=== PATIENT | female | born 1955 | race Caucasian/White ===

== ENCOUNTER → 2017-09-22 | Day surgery (SDC) | payer OTHER ==
[~2017-09-22] VITALS: Ht 154.9 cm; Wt 104.3 kg
[~2017-09-22] MED LIST: ATORVASTATIN CA10 M1 PO; CITALOPRAM HBR10 MG PO; OMEPRAZOLE40 M1 PO; PRINIVIL10 M1 PO; REGLAN10 M1 PO; VITAMIN B-121000 MC3 PO; ZOFRAN ODT4 M1 SL
--- NOTE | 2017-09-22 17:22 | Operative Report ---
Operative/Inv Procedure Report Surgery Date: 09/22/17 Name of Procedure: Robotic cholecystectomy Pre-Operative Diagnosis: Biliary dyskinesia, morbid obesity (BMI 43) Post-Operative Diagnosis: Same Estimated Blood Loss: scant Surgeon/Fire Systems Inspector: Stephany SCHULTZ,Chuy Powell PAC Anesthesia: general endotracheal tube (ASA III), block, local half percent Marcaine plain IV Fluids: 1 L crystalloid Implants: None Drains: None Specimens: Gallbladder Complications: None Condition: Excellent, stable to PACU Operative Indication: Arelis is a 62-year-old female with recurring epigastric and right upper quadrant abdominal pain suggestive of biliary colic. Her ultrasounds and other imaging however have never shown stones. She had a quantitative HIDA scan showing ejection fraction of 23%. She presents for elective robotic cholecystectomy. She has morbid obesity with BMI 43. Operative/Procedure Note Note: The patient is taken to the operating room placed on the operating table supine position. Following an awake timeout she underwent uneventful induction of general endotracheal anesthesia had Venodyne boots in place arms extended out to the sides in the lower body Aranza hugger. She received Ancef IV prior skin incision as well as 2 mL of ICG for firefly visualization of the biliary tree. The abdomen was then prepped widely with DuraPrep and draped in usual sterile fashion. Local anesthetic was then infiltrated in the supraumbilical area where a curvilinear incision was made and carried down through a thick pannus of about 8 cm to the midline fascia. This was thinned out from a rectus diastases and opened vertically to expose the preperitoneal fat. We dissected through the fat with the cautery until we reached the peritoneum pulling it up and incising it carefully to gain entry safely into the peritoneal cavity. A finger sweep revealed there were no adhesions and 12 MM aerocele port placed. Pneumoperitoneum was achieved and the 8 mm 30 da Louis Xi camera inserted. The patient was placed in reverse Trendelenburg position and then to 8 mm ports placed at about the level of the umbilicus on the right side and then a single 8 mm port placed to the left side all under direct vision after infiltrating local anesthetic. The da Louis Xi robot was then brought onto the field and docked. Camera was placed first 30 up and then instruments consisting of Progrip in 1, fenestrated bipolar into and hook in 4. The gallbladder then came into view once I swept the omentum from the right upper quadrant and tip the edge of the liver in a cephalad direction. The gallbladder dome was grasped and delivered up towards the diaphragm carefully. This brought the length of the gallbladder into view. There were no adhesions to the gallbladder. The fenestrated grasper was then used to pull Kaminski's pouch laterally exposing the area of the triangle of Calot. The node of Calot was nicely seen and I opened the peritoneum just proximal to this with the hook cautery and easily exposed the cystic duct. I opened the peritoneum more medial and lateral in the cystic artery came into view. I used the firefly to assess the length of the cystic duct and the location of the common duct which was much more medial and behind the duodenum which required sweeping away in order to see a good anatomic view of the biliary tree. The cystic duct was quite long. I isolated the cystic artery noting that it was somewhat small and suggesting there might be a bifurcation and this was just an anterior branch. I had excellent dissection with a good critical view of safety and I clipped the cystic duct 2 on the patient's side and one in the specimen side, then put the cystic artery 2 on the patient's side and one on the specimen side and divided both structures. As suspected, there appeared to be a posterior artery which I isolated separately clipped 2 on the patient's side and one on the specimen side and divided. I now could easily lift the gallbladder off the liver bed using the hook cautery dissected the gallbladder from the liver up to the dome without any violation of the liver capsule or any rupture of the gallbladder. Prior to taking down the final communication between liver and gallbladder I inspected the liver bed and the clips once again and they're all in good position with no bleeding or bile leakage. The gallbladder final attachments were taken down and the gallbladder placed in an extraction bag at the #3 Port. We then irrigated briefly leveling the patient with all the aspirate being clear. The robot was undocked and we removed the ports under direct vision leaving a Daniel port last and then remove this port with the gallbladder inside an extraction bag. Closure was made of the fascia supraumbilically with 2 [id number] sutures of 0 Maxon. The fascia was notably quite thin and I reinforced it with a separate figure-of- eight suture of 0 Vicryl as well. The subcutaneous tissue there was reapproximated with interrupted 3-0 Vicryl suture followed by 4-0 Monocryl running septic or skin closure at all incision sites. Steri-Strips 4 x 4's and OpSite were placed. The patient tolerated procedure well was taken to the recovery room extubated stable condition all sponge needle and instrument count confirmed as correct 2 at the completion of the case. Findings: Normal triangle of Calot anatomy with a bifurcated artery anterior and posterior branches. No adhesions to gallbladder and no stones. Long cystic duct. Discharge Disposition: PACU
== END ==
LOC: STS 01:52
DX: K81.1 Chronic cholecystitis (principal); K82.8 Other specified diseases of gallbladder; E66.01 Morbid (severe) obesity due to excess calories; Z68.41 Body mass index [BMI] 40.0-44.9, adult; I10 Essential (primary) hypertension; K21.9 Gastro-esophageal reflux disease without esophagitis
CPT/HCPCS: 88304; C9399; J0131; J0690; J2250; J2405